=== PATIENT | male | born 1985 | race African-American/Black ===

== ENCOUNTER 2020-09-21 07:40 | Emergency (ER) | payer OTHER ==
[2020-09-21 07:49] VITALS: BP 139/86
--- NOTE | 2020-09-21 08:19 | ED Physician Documentation ---
PD HPI HEENT - Stated complaint Stated Complaint: SORE THROAT - Chief complaint Chief Complaint: Heent - History obtained from History obtained from: Patient - Additional information Additional information: Comes emergency department chief complaint of sore throat. He states this started last night and escalated throughout the night. He tried taking some tea with honey and had trouble sleeping throughout most of the night until he finally was too tired to stay awake. He denies any fevers or chills. He has had a mild cough. No nasal congestion. No abdominal pain. No other complaints at this time. He states that he is mainly here because [place] been concerned about [place] and he does not want to give anything to anybody at work. Review of Systems Ten Systems: 10 systems reviewed and negative Constitutional: reports: Reviewed and negative Eyes: reports: Reviewed and negative Ears: reports: Reviewed and negative Nose: reports: Reviewed and negative Throat: reports: Sore throat Cardiac: reports: Reviewed and negative Respiratory: reports: Reviewed and negative GI: reports: Reviewed and negative : reports: Reviewed and negative Skin: reports: Reviewed and negative Musculoskeletal: reports: Reviewed and negative Neurologic: reports: Reviewed and negative Psychiatric: reports: Reviewed and negative Endocrine: reports: Reviewed and negative Immunocompromised: reports: Reviewed and negative PD PAST MEDICAL HISTORY - Past Medical History Past Medical History: No - Past Surgical History Past Surgical History: No - Present Medications Home Medications: Ambulatory Orders Medication Instructions Recorded Confirmed No Known Home Medications 09/21/20 09/21/20 - Allergies Allergies/Adverse Reactions: Allergies Allergy/AdvReac Type Severity Reaction Status Date / Time No Known Drug Allergies Allergy Verified 09/21/20 07:49 - Social History Does the pt smoke?: No Smoking Status: Never smoker Does the pt have substance abuse?: No PD ED PE NORMAL - Vitals Vital signs reviewed: Yes - General General: Alert and oriented X 3, No acute distress, Well developed/nourished - HEENT HEENT: Atraumatic, PERRL, EOMI, Moist mucous membranes, Pharynx benign - Neck Neck: Supple, no meningeal sign, No adenopathy - Cardiac Cardiac: RRR, No murmur - Respiratory Respiratory: No respiratory distress, Clear bilaterally - Abdomen Abdomen: Soft, Non tender, Non distended - Derm Derm: Normal color, Warm and dry, No rash - Extremities Extremities: No deformity - Neuro Neuro: Alert and oriented X 3, wholesale representative 2-12 intact, Normal speech, Other (Grossly normal) - Psych Psych: Normal mood, Normal affect Results - Vitals Vitals: Vital Signs - 24 hr 09/21/20 07:48 Temperature 36.2 C L Heart Rate 50 L Respiratory 16 Rate Blood Pressure 139/86 H O2 Saturation 100 Oxygen O2 Source Room air - Labs Labs: Laboratory Tests 09/21/20 08:40 Group A Strep Rapid Negative PD MEDICAL DECISION MAKING - ED course Complexity details: reviewed results, re-evaluated patient, considered differential, d/w patient ED course: The patient was worked up with strep swab and Covid swab, both which are pending at this time. I informed the patient that we would call him at home if either one was positive. We have discussed symptomatic management at home, as well as the usual indications for return. Departure - Departure Disposition: 01 Home, Self Care Clinical Impression: Pharyngitis Qualifiers: Pharyngitis/tonsillitis etiology: unspecified etiology Qualified Code(s): J02.9 - Acute pharyngitis, unspecified Condition: Stable Instructions: ED Pharyngitis Viral Report Pending, ED Strep Pharyngitis Poss Comments: Your strep and Covid tests are pending at this time. The strep test should be back in the next couple of hours, though it is unlikely to be positive, based on the appearance of your throat. However, if it is positive, we will call you at home and call in prescription for antibiotics for you. The Covid test that should be back by tomorrow morning. You may check in with the hospital medical records office to have these results released. In the meantime, you should stay home from work until you have your results back. You may use ibuprofen, Tylenol, and other [id number] cold remedies to help with the discomfort of sore throat. In general, viral illnesses causing sore throats should be expected to resolve on their own within a week's time. Forms: Activity restrictions Discharge Date/Time: 09/21/20 09:12
[2020-09-21 09:23] LABS: RAPID STREP SCREEN Negative (Negative)
== END 2020-09-21 09:12 | disposition home or self-care (01) ==
LOC: ED 07:40
DX: J02.9 Acute pharyngitis, unspecified (principal); Z20.822 Contact with and (suspected) exposure to COVID-19
CPT/HCPCS: 87070; 87077; 87430; 99283; 99284

== ENCOUNTER 2020-11-06 09:36 | Outpatient (CLI) | payer OTHER ==
--- NOTE | 2020-11-06 15:10 | XRAY Report ---
PROCEDURE: Knee 3 View RT INDICATIONS: SPRAIN OF MCL OF R KNEE TECHNIQUE: 3 views of the right knee(s) were acquired. COMPARISON: None. FINDINGS: Bones: No fractures or dislocations. No suspicious bony lesions. Mild medial compartment narrowing . No erosions. No periarticular osteophytes. Soft tissues: Mild joint effusion. No suspicious soft tissue calcifications. IMPRESSION: Arthritic changes predominantly within the medial compartment as above. Reviewed by: Estelle Dobson MD on 11/06/2020 3:09 PM PDT Approved by: Estelle Dobson MD on 11/06/2020 3:09 PM PDT Station ID: [id number]
== END 2020-11-06 23:59 | disposition home or self-care (01) ==
LOC: DI.N 09:36
PROVIDERS: ATTEND Physician Assistant Medical
DX: M17.11 Unilateral primary osteoarthritis, right knee (principal)

== ENCOUNTER 2020-12-18 07:45 | Outpatient (CLI) | payer OTHER ==
--- NOTE | 2020-12-18 16:54 | MRI Report ---
PROCEDURE: Knee RT W/O INDICATIONS: PAIN IN RIGHT KNEE TECHNIQUE: Noncontrast sagittal PD fast spin echo and T2 fast spin echo with fat saturation, sagittal 3-D gradie nt sequence with fat saturation; coronal T1 spin echo and PD fast spin echo with fat saturation, and axial PD fast spin echo with fat saturation through the knee. COMPARISON: None. FINDINGS: Image quality: Excellent. Menisci: Oblique tear involving posterior horn of medial meniscus is seen extending to inferior artic ulating surface. There is no focal lateral meniscal tear. The meniscal root ligaments appear intact. Cruciate ligaments: The anterior and posterior cruciate ligaments appear intact. Medial structures: Low to moderate grade proximal MCL sprain at its femoral insertion is seen. The po sterior oblique ligament, semimembranosus tendon insertions, and oblique popliteal ligament, and meni scocapsular junction appear intact. Visualized portions of the pes anserinus tendons appear normal. No abnormal bursal fluid. Lateral structures: The lateral collateral ligament, long and short heads of the biceps femoris tend on appear intact. The popliteus tendon appears normal; the popliteofibular ligament appears intact. The posterosuperior and anteroinferior popliteomeniscal fascicles appear intact. The arcuate and fa bellofibular ligaments appear intact, around the lateral inferior geniculate artery. Iliotibial band appears normal. Anterior structures: The quadriceps and patellar tendons appear intact. Patellar alignment is pradeep l. No femoral trochlear dysplasia or ventral trochlear prominence. No edema in the infrapatellar fa t pad. Bones and cartilage: No bone marrow contusions or fractures. 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 The cartilage of the medial and lateral femorotibial compartments, as well as the webber lofemoral compartment, appears normal in thickness. Joint space: There is moderate amount of joint fluid, no gross intra-articular loose body is seen. A small popliteal cyst is noted and measures 2.6 x 2.5 x 5.5 cm in size. Normal appearing synovial pli are incidentally noted. IMPRESSION: 1. Oblique tear involving posterior horn of medial meniscus extending to inferior articular surface. No focal lateral meniscal tear. 2. Cruciate ligaments are intact. Low to moderate grade proximal MCL sprain/partial thickness tear at its femoral insertion. 3. 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 Quadriceps tendon and patellar tendon are intact. 4. No marrow edema. No fracture or dislocation. Moderate joint effusion, no gross loose body. Poplite al cyst as above. Reviewed by: Jeffrey Benítez MD on 12/18/2020 4:53 PM PDT Approved by: Jeffrey Benítez MD on 12/18/2020 4:53 PM PDT Station ID: [id number]
== END 2020-12-18 07:46 | disposition home or self-care (01) ==
LOC: DI 07:45
PROVIDERS: ATTEND Family Medicine
DX: S83.241A Other tear of medial meniscus, current injury, right knee, initial encounter (principal); S83.411A Sprain of medial collateral ligament of right knee, initial encounter

== ENCOUNTER 2020-12-25 12:05 | Outpatient (CLI) | payer OTHER ==
[2020-12-25] MEDS ORDERED: GADOBUTROL 10 MMOL/10 ML VIAL ONE (12:43)
[2020-12-25] MEDS ORDERED: GADOBUTROL 10 MMOL/10 ML VIAL IVP ONE (14:39)
--- NOTE | 2020-12-25 16:09 | MRI Report ---
PROCEDURE: Foot RT W/WO INDICATIONS: PAINFUL LUMP RIGHT FOOT CONTRAST: IV CONTRAST: Gadavist ml: 10 TECHNIQUE: Noncontrast sagittal T1 spin echo and T2 fast spin echo with fat saturation, long-axis T1 spin echo a nd T2 fast spin echo with fat saturation; short-axis T1 spin echo, proton density fast spin echo, and T2 fast spin echo with fat saturation through the forefoot. Post-contrast short axis, long axis, an d sagittal T1 spin echo with fat saturation through the forefoot. COMPARISON: None. FINDINGS: Image quality: Excellent. Bones and joints: No suspicious osseous enhancement. No bone marrow contusions or metatarsal stress fractures. The sesamoid bones appear in expected positions, without internal edema. No metatarsoph alangeal joint degeneration. No intraosseous lesions. Soft tissues: Lobulated T2 hyperintense and T1 hypointense structure involving medial band of plantar fascia at the level of first metatarsal shaft superficial to the flexor hallucis tendon is seen and measures up to 1.1 x 1.3 x 2.2 cm in size. There is suggestion of thin internal septation. After cont rast infusion, there is fairly homogeneous enhancement of this structure. No other enhancing soft tis kathy nodule or mass is seen. The visualized plantar foot muscles demonstrate normal signal and bulk. Visualized flexor and extensor tendons appear intact, without tenosynovitis. The distal insertions o f the peroneus brevis and longus tendons appear intact. The principal Lisfranc ligament appears inta ct. Sagittal images demonstrate no evidence for plantar plate tears. IMPRESSION: 1. 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 2. No other enhancing soft tissue lesion. Flexor and extensor tendons of the midfoot and forefoot are grossly intact. 3. No marrow edema. No abnormal intraosseous enhancement. No fracture or dislocation. Reviewed by: Jeffrey Benítez MD on 12/25/2020 4:07 PM PDT Approved by: Jeffrey Benítez MD on 12/25/2020 4:07 PM PDT Station ID: [id number]
--- NOTE | 2020-12-25 17:08 | MRI Report ---
PROCEDURE: Ankle RT W/WO INDICATIONS: PAINFUL LUMP RIGHT FOOT TECHNIQUE: Noncontrast Magnetic Resonance Imaging (MRI) of the ankle/hindfoot was performed utilizing the follow ing sequences: sagittal T1 spin echo, sagittal STIR or T2 weighted, axial PD fast spin echo, axial T2 fast spin echo with fat saturation, coronal T2 spin echo with fat saturation, and PD fast spin echo with fat saturation. Postcontrast axial, sagittal and coronal fat-suppressed T1-weighted. COMPARISON: None. FINDINGS: Bones: No acute fracture. No suspicious osseous lesion. Joint effusions: None. Talar dome: No osteochondral lesion. Coalitions: No hindfoot coalition identified. There is diffuse hindfoot and midfoot degenerative spurring and subchondral sclerosis Medial structures: Deltoid ligament: Intact. Spring ligament: Intact. Posterior tibialis: Intact. Mild tenosynovitis. Flexor digitorum longus: Intact. Mild tenosynovitis. Flexor hallucis longus: Intact. Posterior tibial neurovascular bundle: Normal appearance. Lateral structures: Anterior talofibular ligament: Intact. Calcaneofibular ligament: Intact. Posterior talofibular ligament: Intact. Anterior tibiofibular ligament: Intact. Posterior tibiofibular ligament: Intact. Peroneus longus: Intact. Peroneus brevis: Mild tendinopathy and interstitial tearing at the tip the lateral malleolus. Sinus tarsi: Normal appearance. Anterior structures: Dorsal talonavicular ligament: Intact. Tibialis anterior: Intact. Extensor hallucis longus: Intact. Extensor digitorum longus: Intact. Posterior and plantar structures: Achilles tendon: Intact. Plantar fascia: Intact. Muscles: No atrophy to suggest Morales's neuropathy. No definite suspicious mass or abnormal enhancement identified. IMPRESSION: Peroneus brevis tendinopathy and interstitial tearing of the tip of the lateral malleolus. No discrete mass identified. No suspicious enhancement Mild posterior tibialis and flexor digitorum longus tenosynovitis. Reviewed by: Deandre Sanchez MD on 12/25/2020 5:07 PM PDT Approved by: Deandre Sanchez MD on 12/25/2020 5:07 PM PDT Station ID: [id number]
== END 2020-12-25 12:06 | disposition home or self-care (01) ==
LOC: DI 12:05
PROVIDERS: ATTEND Podiatrist
DX: D21.21 Benign neoplasm of connective and other soft tissue of right lower limb, including hip (principal); M65.871 Other synovitis and tenosynovitis, right ankle and foot; S93.491A Sprain of other ligament of right ankle, initial encounter
CPT/HCPCS: 73720; 73723; A9585

== ENCOUNTER 2022-07-23 09:45 | Outpatient (CLI) | payer OTHER ==
--- NOTE | 2022-07-24 09:54 | MRI Report ---
PROCEDURE: KNEE WO - LT INDICATIONS: KNEE PAIN TECHNIQUE: Noncontrast sagittal PD fast spin echo and T2 fast spin echo with fat saturation, sagittal 3-D gradie nt sequence with fat saturation; coronal T1 spin echo and PD fast spin echo with fat saturation, and axial PD fast spin echo with fat saturation through the knee. COMPARISON: None. FINDINGS: Image quality: Excellent. Menisci: There is horizontal tear of the posterior horn the medial meniscus involving the inferior ar ticular surface. A flap tear is suspected of the anterior horn of the medial meniscus. There is degen erative tear of the free edge of the body and the posterior horn of the medial meniscus. There is complex tear involving the posterior horn and body of the lateral meniscus. Medial and later al menisci demonstrate normal morphology and internal signal. Cruciate ligaments: The anterior cruciate ligament is poorly visualized, suspicious for chronic tear . The posterior cruciate ligament appears intact. Medial structures: The medial collateral ligament appears intact. The semimembranosus tendon insert ions and meniscocapsular junction appear intact. Visualized portions of the pes anserinus tendons ap pear normal. No abnormal bursal fluid. Lateral structures: The lateral collateral ligament and the biceps femoris tendon appear intact. Th e popliteus tendon appears normal. Iliotibial band appears normal. Anterior structures: The quadriceps and patellar tendons appear intact. Patellar alignment is pradeep l. No femoral trochlear dysplasia or ventral trochlear prominence. No edema in the infrapatellar fa t pad. Bones and cartilage: No bone marrow contusions or fractures. Tricompartmental cartilage thinning and fibrillation, most pronounced and severe in the lateral femorotibial compartment. There is mild kelle ma in the lateral femoral condyle and lateral tibial plateau, likely secondary to "[id number]". Joint space: There is moderate knee joint fluid. Small Virgen's cyst. Normal appearing synovial plic ae are incidentally noted. IMPRESSION: 1. Medial meniscal tear. 2. Lateral meniscal tear. 3. 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 4. 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 5. Moderate knee joint effusion. 6. Small Virgen's cyst. Reviewed by: Thiago Wheeler MD on 07/24/2022 9:52 AM PDT Approved by: Thiago Wheeler MD on 07/24/2022 9:52 AM PDT Station ID: [id number]
== END 2022-07-23 09:46 | disposition home or self-care (01) ==
LOC: DI 09:45
PROVIDERS: ATTEND Preventive Medicine Aerospace Medicine
DX: S83.242A Other tear of medial meniscus, current injury, left knee, initial encounter (principal); S83.282A Other tear of lateral meniscus, current injury, left knee, initial encounter; M94.262 Chondromalacia, left knee; M25.462 Effusion, left knee; M71.22 Synovial cyst of popliteal space [Baker], left knee